=== PATIENT | female | born 1965 ===

== ENCOUNTER 2018-05-09 09:00 | Inpatient (IN) | payer OTHER, SELFPAY ==
[2018-05-02 08:35] VITALS: BMI 28.5
[2018-05-16] MEDS ORDERED: ceFAZolin 1 gm in NS 1 GM/100 ML BAG IVPB ONE (10:12)
[2018-05-16] MEDS ORDERED: ceFAZolin IV 1 gm in Dextrose 1 GM/50 ML BAG IVPB ONE (10:12)
[2018-05-16] MEDS ORDERED: Bupivacaine 0.25% 20 ML INJ IJ ONE (10:13)
[2018-05-16] MEDS ORDERED: Midazolam 2 MG/2 ML VIAL ONE (11:28)
[2018-05-16] MEDS ORDERED: Propofol 10 mg/ml Inj (20 ML) ONE (11:28)
[2018-05-16] MEDS ORDERED: Phenylephrine 10 mg/ml Inj ONE (11:38)
[2018-05-16] MEDS ORDERED: Neostigmine Methylsulfate 3mg/3ml Syringe IV ONE (13:49)
[2018-05-16] MEDS ORDERED: HYDROmorphone 0.5 mg/0.5 ml ISec IVP PRN ×2 (13:55→14:04)
--- NOTE | 2018-05-16 13:59 | PCM.SURG1 ---
Surgeon's Initial Post Op Note - Surgeon's Notes Surgeon: Dr. Shanel oJhnston Remedial Reading Teacher: Dr. Curry Pre-Operative Diagnosis: Large fibroid uterus, pelvic pain, menorrhagia Operative Findings: Dense adhesions between bowel and left adnexa, uterus approx 14 week sized, normal appearing ovaries Post-Operative Diagnosis: same Operation Performed: Supracervical hysterectomy Specimen/Specimens Removed: uterus Estimated Blood Loss: EBL {In ML}: 200 Blood Products Given: N/A Drains Used: No Drains Post-Op Condition: Good Date of Surgery/Procedure: 05/16/18 Time of Surgery/Procedure: 11:45
[2018-05-16] MEDS ORDERED: Sodium Chloride 0.9% 1,000 ML IV SCH (14:00)
[2018-05-16] MEDS ORDERED: cefOXitin IV 2 gm in Dextrose 2 GM/50 ML BAG IVPB SCH (14:00)
[2018-05-16] MEDS ORDERED: HYDROmorphone 0.5 mg/0.5 ml ISec ONE (14:09)
[2018-05-16] MEDS ORDERED: Trimethobenzamide 200 mg/2 mL Inj IM PRN (14:17)
[2018-05-16] MEDS ORDERED: Sodium Chloride 0.9% 1,000 ML IV ONE (15:27)
[2018-05-16] MEDS: Sodium Chloride 0.9% 1,000 ML IV SCH (15:53)
[2018-05-16] MEDS: cefOXitin IV 2 gm in Dextrose 2 GM/50 ML BAG IVPB SCH (20:00)
[2018-05-17] MEDS: cefOXitin IV 2 gm in Dextrose 2 GM/50 ML BAG IVPB SCH ×2 (03:16→11:37)
[2018-05-17] MEDS: Sodium Chloride 0.9% 1,000 ML IV SCH (05:30)
[2018-05-17 08:53] LABS: HEMOGLOBIN 11.4 g/dL (11.0-16.0); MEAN CELL VOLUME 95.1 fL (81.0-99.0); MEAN CORPUSCULAR HEMOGLOBIN 32.5 pg (27.0-31.0); MEAN CORPUSCULAR HGB CONC 34.2 g/dL (33.0-37.0); MEAN PLATELET VOLUME 9.1 fL (7.2-11.7); RBC 3.5 Mil/uL (3.80-5.20); RED CELL DISTRIBUTION WIDTH 13.5 % (11.5-14.5)
[2018-05-17 08:56] LABS: WHITE BLOOD COUNT 7.6 K/uL (4.8-10.8)
[2018-05-17 09:25] LABS: BLOOD UREA NITROGEN 7 mg/dL (7-17); CALCIUM 8.6 mg/dl (8.6-10.4); GFR NON-AFRICAN AMERICAN > 60
--- NOTE | 2018-05-17 17:24 | CP.PCM.PN ---
Subjective - Date & Time of Evaluation Date of Evaluation: 05/17/18 Time of Evaluation: 17:00 - Subjective Subjective: Patient denies any acute complaints. Ambulating, voiding, tolerating regular diet. Passing flatus. Pain is well controlled with IV pain medications Objective - Vital Signs/Intake and Output Vital Signs (last 24 hours): Temp Pulse Resp BP Pulse Ox 97.7 F 70 18 96/54 L 97 05/17/18 08:00 05/17/18 08:00 05/17/18 08:00 05/17/18 08:00 05/17/18 08:00 Intake and Output: 05/17/18 05/17/18 06:59 18:59 Intake Total 1600 125 Balance 1600 125 - Medications Medications: Current Medications Acetaminophen (Tylenol 325mg Tab) 650 mg PO Q6 [facility] Last Admin: 05/17/18 11:38 Dose: 650 mg Heparin Sodium (Porcine) (Heparin) 5,000 units SC Q12H [facility] Last Admin: 05/17/18 14:56 Dose: 5,000 units Hydromorphone HCl (Dilaudid) 0.5 mg IVP Q4H PRN PRN Reason: Pain, severe (8-10) Sodium Chloride (Sodium Chloride 0.9%) 1,000 mls @ 125 mls/hr IV .Q8H [facility] Last Admin: 05/17/18 05:30 Dose: 125 mls/hr Ketorolac Tromethamine (Toradol) 30 mg IVP Q6 [facility] Stop: 05/18/18 12:01 Last Admin: 05/17/18 11:47 Dose: 30 mg Trimethobenzamide HCl (Tigan) 200 mg IM Q6 PRN PRN Reason: Nausea/Vomiting - Labs Labs: 05/17/18 08:33 05/17/18 08:33 - Constitutional Appears: Well, No Acute Distress - Eye Exam Eye Exam: Normal appearance - ENT Exam ENT Exam: Mucous Membranes Moist - Respiratory Exam Respiratory Exam: NORMAL BREATHING PATTERN - Cardiovascular Exam Cardiovascular Exam: REGULAR RHYTHM - GI/Abdominal Exam GI & Abdominal Exam: Normal Bowel Sounds - Extremities Exam Extremities Exam: Normal Inspection - Neurological Exam Neurological Exam: Alert, Oriented x3 - Psychiatric Exam Psychiatric exam: Normal Affect, Normal Mood - Skin Skin Exam: Normal Color - Additional Findings Additional findings: Incision: clean, dry, intact, healing well, covered with steri-strips Assessment and Plan - Assessment and Plan (Free Text) Assessment: s/p supracervical hysterectomy, patient doing well Plan: Change medications from IV to PO pain meds. If pain is well controlled, patient will be discharged home tomorrow
[2018-05-17 23:54] VITALS: RESP 20
[2018-05-18 08:55] VITALS: BP 94/57; PULSE 69; TEMP 97.1; O2SAT 99
--- NOTE | 2018-05-18 13:21 | PCM.OP ---
Operative Report - Operative Report Date of Surgery/Procedure: 05/16/19 Time of Surgery/Procedure: 11:45 Surgeon: Dr. Shanel Johnston Marketing Forecaster: Dr. Curry Anesthesia/Sedation: General endotracheal Pre-Operative Diagnosis: Large fibroid uterus, pelvic pain, dysmenorrhea Post-Operative Diagnosis: same Indication for Surgery: Large fibroid uterus, pelvic pain, dysmenorrhea Operative Findings: Uterus approx 15 week sized, multiple adhesions of bowel to left pelvic side wall. Otherwise normal appearing ovaries and anatomy Procedure/Operation Description: After all relevant documentation was reviewed and signed by MD, patient was taken to OR. She was prepped and draped in the usual sterile fashion after being placed under general anesthesia. A transverse skin incision was made with a scalpel and carried down to the level of the fascia. The fascia was incised and the incision was extended laterally. The fascia was then dissected of the rectus muscle superiorly and inferiorly. The rectus muscles were down the midline and the peritoneum was entered bluntly. The bladder blade was introduced and the uterus was delivered. The previously mentioned findings were noted. Lysis of adhesions was performed. Attention was then placed to the bilateral round ligaments which were transected. The uterine arteries were skeletonized bilaterally and the bladder flap was created.the fallopian tubes were transected. The uterine arteries were cauterized and suture ligated. The uterus was then amputated supracervically. The remaining stump was closed with O-Vycril in figure of eight stitches. Excellent hemostasis was noted. Abdomen was irrigated with warm saline. Flowseal was placed over remaining side wall and stump. Excellent hemostasis was noted. Peritoneum was closed with 2-0 Monocryl. Rectus muscle was reapproximated with 2-0 Monocryl. Fascia was closed with 0-Vycril. Subcutaneous adipose tissue was closed with 2-0 plain. Skin was reapproximated with 3-0 Monocryl in a subcuticular fashion. Excellent hemostasis was noted. Incision was covered with sterile dressing. Patient was then awoken from general anesthesia in stable condition. Estimated Blood Loss: 200mL Blood Replaced: none Complications: none Discharge & Condition: stable
== END 2018-05-18 10:20 | disposition home or self-care (01) | DRG 359 ==
LOC: C.9S 05-16 08:07 → C.4M 05-16 13:10
PROVIDERS: ADMIT Obstetrics & Gynecology; ATTEND Obstetrics & Gynecology
PROC: 0JNC0ZZ Release Pelvic Region Subcutaneous Tissue and Fascia, Open Approach (ICD-10-PCS; 2018-05-16)
PROC: 0UT90ZL Resection of Uterus, Supracervical, Open Approach (ICD-10-PCS; principal; 2018-05-16 10:00)
DX: D25.9 Leiomyoma of uterus, unspecified (principal); N92.0 Excessive and frequent menstruation with regular cycle; N80.0 Endometriosis of uterus; N94.6 Dysmenorrhea, unspecified; N73.6 Female pelvic peritoneal adhesions (postinfective); N94.9 Unspecified condition associated with female genital organs and menstrual cycle

== ENCOUNTER 2018-12-04 10:19 | Outpatient (CLI) | payer OTHER | END 2018-12-04 10:20 | disposition home or self-care (01) | LOC: C.MAMMO 10:19 ==